=== PATIENT | male | born 1965 | race Caucasian/White ===

== ENCOUNTER 2018-09-07 12:10 | Emergency (ER) | payer SELFPAY ==
[~2018-09-07] VITALS: Ht 165.1 cm; Wt 73.0 kg
[2018-09-07] MEDS ORDERED: IBUPROFEN 800MG TABLET PO ONE (17:45)
[2018-09-07 19:53] VITALS: BP 121/69
== END 2018-09-07 19:56 | disposition home or self-care (01) ==
LOC: ER 12:10
DX: S92.331A Displaced fracture of third metatarsal bone, right foot, initial encounter for closed fracture (principal); V19.88XA Pedal cyclist (driver) (passenger) injured in other specified transport accidents, initial encounter; Y93.89 Activity, other specified; Y92.89 Other specified places as the place of occurrence of the external cause; Y99.8 Other external cause status
CPT/HCPCS: 73630; 99283; Z7610